=== PATIENT | female | born 1980 | race Caucasian/White ===

== ENCOUNTER → 2025-03-23 15:56 | Outpatient (REF) | payer OTHER, SELFPAY | LOC: WDC 15:56 | PROVIDERS: ATTENDING PHYSICIAN Obstetrics & Gynecology Gynecology; FAMILY PHYSICIAN Student in an Organized Health Care Education/Training Program | DX: Z12.31 Encounter for screening mammogram for malignant neoplasm of breast (principal) | CPT/HCPCS: 77063; 77067 ==

== ENCOUNTER → 2025-10-07 15:18 | Outpatient (REF) | payer OTHER, SELFPAY | LOC: REG 15:18 | PROVIDERS: ATTENDING PHYSICIAN Student in an Organized Health Care Education/Training Program | DX: M54.2 Cervicalgia (principal) | CPT/HCPCS: 72040 ==